=== PATIENT | male | born 1985 | race Caucasian/White ===

== ENCOUNTER 2020-09-05 14:41 | Emergency (ER) | payer OTHER ==
[2020-09-05] MEDS ORDERED: PREDNISONE 20MG20 MG PO (18:07)
[2020-09-05] MEDS ORDERED: CYCLOBENZAPRINE10 MG PO (18:07)
== END 2020-09-05 18:06 | disposition home or self-care (01) ==
LOC: FER 14:41
DX: S39.012A Strain of muscle, fascia and tendon of lower back, initial encounter (principal); R51.9 Headache, unspecified; W19.XXXA Unspecified fall, initial encounter; Y92.009 Unspecified place in unspecified non-institutional (private) residence as the place of occurrence of the external cause
CPT/HCPCS: 70450; 72125; 72131; 73030; 96372; J1100; J1885